=== PATIENT | female | born 1945 | race Hispanic/Latino ===

== ENCOUNTER → 2018-08-20 | Outpatient (CLI) | payer OTHER | END | disposition home or self-care (01) | LOC: SHCH 12:07 | PROVIDERS: ATTEND Internal Medicine Cardiovascular Disease | DX: R06.00 Dyspnea, unspecified (principal) | CPT/HCPCS: 93306 ==

== ENCOUNTER 2018-08-30 05:43 | Day surgery (SDC) | payer OTHER ==
[2018-08-28 09:08] LABS: BASOPHILS % (AUTO) 0.4 % (0.0-5.0); EOSINOPHILS % (AUTO) 3.4 % (0.0-8.0); HEMATOCRIT 41.9 % (36-48); LYMPHOCYTES % (AUTO) 35.3 % (21.0-51.0); MEAN CORPUSCULAR HEMOGLOBIN 29.8 pg (27.0-33.0); MEAN CORPUSCULAR HGB CONC 33.9 g/dL (32.0-36.0); MONOCYTES % (AUTO) 7.4 % (3.0-13.0); NEUTROPHILS % (AUTO) 53.5 % (40.0-77.0); NUCLEATED RED BLOOD CELLS 0.1 % (0.0-0.19); PLATELET COUNT (AUTO) 190 K/uL (130-400); RED BLOOD CELL COUNT(AUTO) 4.76 MIL/uL (4.00-5.50); RED CELL DISTRIBUTION WIDTH 14.7 % (11.0-15.5); WHITE BLOOD COUNT (AUTO) 5.4 K/uL (4.8-10.8)
[2018-08-28 09:10] VITALS: BP 152/78
[2018-08-28 09:16] LABS: CREATININE 0.7 mg/dL (0.5-1.5); POTASSIUM 4.4 mmol/L (3.5-5.1)
[2018-08-28 09:17] LABS: INR 0.96 (0.85-1.15); PARTIAL THROMBOPLASTIN TIME 28.2 SEC (26.3-35.5); PROTHROMBIN TIME 10.1 SEC (9.6-11.6)
[2018-08-28 09:32] LABS: APPEARANCE,URINE Clear (CLEAR); BILIRUBIN,URINE Negative (NEGATIVE); COLOR,URINE Yellow (YELLOW); GLUCOSE, URINE (UA) Negative (NEGATIVE); KETONES,URINE Negative (NEGATIVE); LEUKOCYTE ESTERASE ,URINE Negative (NEGATIVE); NITRATE,URINE Negative (NEGATIVE); OCCULT BLOOD,URINE Negative (NEGATIVE); PROTEIN,URINE Negative (NEGATIVE); UROBILINOGEN,URINE 0.2 mg/dL (0.2-1.0)
[~2018-08-30] VITALS: Ht 152.4 cm; Wt 81.1 kg
[~2018-08-30 05:43] MED LIST: ASPI-555 PO; CHOL200059 PO; METO5TAB2 PO; OLME40TA18 PO; PRAV10TA39 PO
[2018-08-30] MEDS ORDERED: SODIUM CHLORIDE 0.9% 1000ML 0 ML IV ONE (06:10)
[2018-08-30] MEDS ORDERED: SODIUM CHLORIDE 0.9% 1000ML 1,000 ML IV ONE (06:14)
[2018-08-30 06:15] VITALS: BP 159/83
--- NOTE | 2018-08-30 06:20 | NUR ---
INSTRUCTED ON POST CATH ,ABOUT BED REST AND NO MOVEMENT TO AFFECTED LEG ,VERBALIZES UNDERSTANDING,,
--- NOTE | 2018-08-30 06:30 | NUR ---
ASSISTED TO ROOM ,WITH NOSE BLEED,HELD PRESSURE X 5 MINUTES ,STOPPED ,PT STATES ONE YESTERDAY PM,IN THE MORNING, AT 2 AM AND,HELD PRESSURE X 5 MIN STOPPED ,NORA DEVINE CALLED
--- NOTE | 2018-08-30 06:35 | NUR ---
NORA DEVINE CALLS BACK ,AWARE OF NOSE BLEEDS ,AND VS,ORDER FOR DR CLAROS CONSULT
--- NOTE | 2018-08-30 06:45 | NUR ---
ANOTHER NOSE BLEED ,PRESSURE X 5 MIN ,WITH BLOOD CLOTS ,APPEARED ALITTLE HEAVIER THEN PRIOR,,TAKING B/P PT STATES FEELS FINE ,DAUGHTER AT SIDE
[2018-08-30 06:50] VITALS: BP 179/86
--- NOTE | 2018-08-30 06:55 | NUR ---
WITH DR CLAROS ON PHONE ,ORDERS [facility] AND WILL BE HERE AT 0800 TO SEE PT
[2018-08-30 07:00] VITALS: BP 159/73
[2018-08-30] MEDS ORDERED: OXYMETAZOLINE HCL SPRAY 15 ML BOTTLE EN SCH (07:19)
[2018-08-30] MEDS ORDERED: OXYMETAZOLINE HCL SPRAY 15 ML BOTTLE ONE (07:24)
[2018-08-30 07:40] VITALS: BP 148/71
--- NOTE | 2018-08-30 07:50 | NUR ---
DR CLAROS HERE AND PACKS LT NOSTRIL WITH INFLATED WITH 5 ML
[2018-08-30 08:05] VITALS: BP 143/80
--- NOTE | 2018-08-30 08:22 | NUR ---
RESTING COMFORTABLY NO NOSE BLEED ,DAUGHTER AT SIDE
--- NOTE | 2018-08-30 08:25 | NUR ---
NORA DEVINE IN TO TALK WITH PT,,DR ALICIA WILL COME TO TALK TO PT ,IN REGARDS TO HAVING HEART CATH OR NOT ,NO IV STARTED PER NORA DEVINE EARLIER WHEN SPOKE TO ,
[2018-08-30 08:45] VITALS: BP 153/75
--- NOTE | 2018-08-30 09:30 | NUR ---
DR ALICIA HERE TALKS WITH WITH FAMILY AND PATIENT,,AND INSTRUCTIONS GIVEN,THEY ALL VERBALIZE UNDERSTANDING N
--- NOTE | 2018-08-30 09:30 | NUR ---
DR ALICIA IN TO SEE PT,,,PROCEDURE WILL NOT BE DONE TODAY ,,DR ALICIA WILL SEE HER 1-2 WEEKS ,AND INSTRUCTIONS GIVEN VERBALLY TO PT AND FAMILY
--- NOTE | 2018-08-30 10:20 | NUR ---
PT WITH NOSE PACKING IN PLACE ,NO BLEEDING ,INSTRUCTIONS GIVEN TO DAUGHTER AND PT ,VERBALIZE UNDERSTANDING,,TO CAR VIA WC
== END 2018-08-30 10:20 | disposition home or self-care (01) ==
LOC: DAH 05:43
PROVIDERS: ATTEND Internal Medicine Cardiovascular Disease
DX: R00.1 Bradycardia, unspecified (principal); Z53.8 Procedure and treatment not carried out for other reasons; E78.5 Hyperlipidemia, unspecified; I10 Essential (primary) hypertension
CPT/HCPCS: 36415; 71045; 80048; 81003; 85025; 85610; 85730; 93005; J7030

== ENCOUNTER → 2019-03-18 | Outpatient (CLI) | payer OTHER | END | disposition home or self-care (01) | LOC: SHCH 12:42 | PROVIDERS: ATTEND Internal Medicine Cardiovascular Disease | DX: R01.1 Cardiac murmur, unspecified (principal) | CPT/HCPCS: 93306 ==

== ENCOUNTER 2019-04-03 05:49 | Day surgery (SDC) | payer OTHER ==
[2019-03-31 14:59] VITALS: BP 154/79
[2019-03-31 15:07] LABS: BASOPHILS % (AUTO) 0.5 % (0.0-5.0); EOSINOPHILS % (AUTO) 2.8 % (0.0-8.0); HEMATOCRIT 39.6 % (36-48); LYMPHOCYTES % (AUTO) 30.2 % (21.0-51.0); MEAN CORPUSCULAR HEMOGLOBIN 29.6 pg (27.0-33.0); MEAN CORPUSCULAR HGB CONC 33.8 g/dL (32.0-36.0); MEAN CORPUSCULAR VOLUME 87.6 fL (79-99); MONOCYTES % (AUTO) 8.5 % (3.0-13.0); PLATELET COUNT (AUTO) 186 K/uL (130-400); RED BLOOD CELL COUNT(AUTO) 4.52 MIL/uL (4.00-5.50); RED CELL DISTRIBUTION WIDTH 14.7 % (11.0-15.5); WHITE BLOOD COUNT (AUTO) 5.6 K/uL (4.8-10.8)
[2019-03-31 15:10] LABS: APPEARANCE,URINE Clear (CLEAR); BILIRUBIN,URINE Negative (NEGATIVE); COLOR,URINE Yellow (YELLOW); GLUCOSE, URINE (UA) Negative (NEGATIVE); KETONES,URINE Negative (NEGATIVE); LEUKOCYTE ESTERASE ,URINE Negative (NEGATIVE); NITRATE,URINE Negative (NEGATIVE); OCCULT BLOOD,URINE Negative (NEGATIVE); PH,URINE 5.5 (5.0-8.0); PROTEIN,URINE Negative (NEGATIVE)
[2019-03-31 15:18] LABS: CREATININE 0.8 mg/dL (0.5-1.5)
[2019-03-31 15:34] LABS: INR 0.94 (0.85-1.15); PARTIAL THROMBOPLASTIN TIME 27.8 SEC (26.3-35.5); PROTHROMBIN TIME 9.9 SEC (9.6-11.6)
[2019-04-03] VITALS (8 sets, daily range): BP systolic 94–115; BP diastolic 50–57
[~2019-04-03] VITALS: Ht 152.4 cm; Wt 83.4 kg
[~2019-04-03 05:49] MED LIST changes: -CHOL200059 PO; +METO-408 PO; -METO5TAB2 PO; -OLME40TA18 PO; +PANT40TA25 PO; -PRAV10TA39 PO; +ROSU10TA28 PO; +SODIUM CHLORIDE 0.9% 500ML 500 ML IV SCH; +VITAMIN D3 PO
--- NOTE | 2019-04-03 05:50 | NUR ---
PATIENT ARRIVED PATIENT ARRIVED TO DAY PATIENT ACCOMPANIED BY DAUGHTER (WILLIE). PATIENT AAOX3, RESPIRATIONS UNLABORED, VITAL SIGNS STABLE, DENIES ANY PAIN AT THIS TIME. PROCEDURE VERIFIED AND CONFIRMED WITH PATIENT. HOSPITAL ROUTINE EXPLAINED TO PATIENT AND PATIENT'S DAUGHTER AND BOTH VERBALIZED UNDERSTANDING.
[2019-04-03] MEDS ORDERED: SODIUM CHLORIDE 0.9% 1000ML 1,000 ML IV ONE (06:57)
[2019-04-03] MEDS ORDERED: HEPARIN SODIUM 1000UNIT/ML 10ML VIAL ONE (07:12)
[2019-04-03] MEDS ORDERED: NITROGLYCERIN 5 MG/ML 10 ML VIAL IV ONE (07:12)
[2019-04-03] MEDS ORDERED: SODIUM BICARB 50MEQ 50ML VIAL ONE (07:12)
[2019-04-03] MEDS ORDERED: LIDOCAINE HCL 2% 20ML ONE (07:13)
[2019-04-03] MEDS ORDERED: IOHEXOL 350 MG/ML 100ML INFUS..BTL IV ONE (07:13)
[2019-04-03] MEDS ORDERED: IOHEXOL-350 50ML VIAL IV ONE (07:13)
--- NOTE | 2019-04-03 07:15 | NUR ---
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 FAMILY MEMBER INSTRUCTED TO WAIT IN ROOM IN ORDER TO SPEAK WITH DR ALICIA FOLLOWING THE PROCEDURE.
[2019-04-03] MEDS ORDERED: HYDRALAZINE HCL 20 MG/ML VIAL ONE (07:56)
[2019-04-03] MEDS ORDERED: LABETALOL 20 MG/4 ML DISP.SYRIN IV ONE (08:21)
[2019-04-03] MEDS ORDERED: SODIUM CHLORIDE 0.9% 1000ML 1,000 ML IV SCH (08:44)
[2019-04-03] MEDS ORDERED: ONDANSETRON HCL 4 MG/2 ML VIAL ONE (08:52)
--- NOTE | 2019-04-03 08:55 | NUR ---
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 PATIENT AAOX3, RESPIRATIONS UNLABORED, VITAL SIGNS STABLE, DENIES ANY PAIN. RIGHT FEMORAL SITE WITH DRESSING IN PLACE DRY/INTACT AND AREA IS SOFT AND NONTENDER. FAMILY MEMBER PRESENT IN ROOM. PATIENT INSTRUCTED TO KEEP RIGHT LEG STRAIGHT AND FLAT FOR 4 HOURS AND PATIENT VERBALIZED UNDERSTANDING.
[2019-04-03] MEDS ORDERED: ONDANSETRON HCL 4 MG/2 ML VIAL IVP SCH (09:00)
--- NOTE | 2019-04-03 12:15 | NUR ---
HANDOFF COMMUNICATION REPORT GIVEN TO ZEKE STALEY RN USING SBAR AT BEDSIDE, ALL QUESTIONS/CONCERNS ADDRESSED.
== END 2019-04-03 13:38 | disposition home or self-care (01) ==
LOC: DAH 05:49
PROVIDERS: ATTEND Internal Medicine Cardiovascular Disease
DX: I77.72 Dissection of iliac artery (principal); I25.10 Atherosclerotic heart disease of native coronary artery without angina pectoris; R93.1 Abnormal findings on diagnostic imaging of heart and coronary circulation; I10 Essential (primary) hypertension; E78.5 Hyperlipidemia, unspecified; Z88.1 Allergy status to other antibiotic agents; Z88.8 Allergy status to other drugs, medicaments and biological substances; Z79.899 Other long term (current) drug therapy; Z79.82 Long term (current) use of aspirin; Z79.01 Long term (current) use of anticoagulants; Z90.710 Acquired absence of both cervix and uterus; Z98.890 Other specified postprocedural states; Z82.49 Family history of ischemic heart disease and other diseases of the circulatory system; Z83.3 Family history of diabetes mellitus
CPT/HCPCS: 36415; 37221; 71045; 80048; 81003; 85025; 85610; 85730; 93005; 93458; 96360; 96361; A4215; A4216; A4221; A4222; A4223 ×2; A4606; C1760; C1769; C1876; C1894; J0360; J1644 ×2; J2405; J3490 ×3; J7030; Q9965; Q9967 ×2

== ENCOUNTER 2021-01-12 10:12 | Day surgery (SDC) | payer MEDICARE ==
[~2021-01-12 10:12] MED LIST changes: +AMOX875T2 PO; -ASPI-555 PO; +ASPI-556 PO; -PANT40TA25 PO; +PANT40TA54 PO; -SODIUM CHLORIDE 0.9% 500ML 500 ML IV SCH
== END 2021-01-12 10:15 | disposition home or self-care (01) ==
LOC: ENDO 10:12 → DAH 10:12 → ENDO 10:15
PROVIDERS: ATTEND Student in an Organized Health Care Education/Training Program
DX: K57.20 Diverticulitis of large intestine with perforation and abscess without bleeding (principal); Z20.822 Contact with and (suspected) exposure to COVID-19; K57.00 Diverticulitis of small intestine with perforation and abscess without bleeding; Z53.9 Procedure and treatment not carried out, unspecified reason
CPT/HCPCS: 87635; C9803

== ENCOUNTER → 2022-04-13 | Outpatient (CLI) | payer MEDICARE | END | disposition home or self-care (01) | LOC: OIH 12:09 | PROVIDERS: ATTEND Internal Medicine Cardiovascular Disease | DX: I87.2 Venous insufficiency (chronic) (peripheral) (principal); I73.9 Peripheral vascular disease, unspecified; I10 Essential (primary) hypertension; E78.5 Hyperlipidemia, unspecified; M79.604 Pain in right leg; Z79.82 Long term (current) use of aspirin; Z79.899 Other long term (current) drug therapy | CPT/HCPCS: 93925; 93970 ==

== ENCOUNTER 2023-06-10 17:43 | Emergency (ER) | payer MEDICARE ==
[~2023-06-10] VITALS: Ht 152.4 cm; Wt 78.0 kg
[2023-06-10] MEDS ORDERED: IBUP-1493 PO (21:32)
[2023-06-10 22:21] VITALS: BP 135/62; PULSE 78; RESP 14; O2SAT 94
== END 2023-06-10 22:23 | disposition left against medical advice (07) ==
LOC: EDH 17:43
DX: S96.911A Strain of unspecified muscle and tendon at ankle and foot level, right foot, initial encounter (principal); S90.31XA Contusion of right foot, initial encounter; M71.20 Synovial cyst of popliteal space [Baker], unspecified knee; E78.00 Pure hypercholesterolemia, unspecified; I10 Essential (primary) hypertension; Z79.82 Long term (current) use of aspirin; Z79.899 Other long term (current) drug therapy; Z88.1 Allergy status to other antibiotic agents; X50.1XXA Overexertion from prolonged static or awkward postures, initial encounter; Y93.89 Activity, other specified; Y92.89 Other specified places as the place of occurrence of the external cause; Y99.8 Other external cause status
CPT/HCPCS: 73590; 73610; 73630; 93971